=== PATIENT | female | born 1940 | race Caucasian/White ===

== ENCOUNTER 2020-06-13 14:56 | Outpatient (CLI) | payer MEDICARE, OTHER, SELFPAY ==
--- NOTE | 2020-06-13 15:03 | MR_ITS ---
WS: [id number] MRI RIGHT KNEE NONCONTRAST TECHNIQUE: Axial PD, coronal PD fat sat, coronal PD, sagittal PD, and sagittal PD fat-sat images obta ined. CLINICAL INFORMATION: KNEE PAIN COMPARISON: None. FINDINGS: Distal quadriceps and patella tendon are intact. Hypertrophic patella. Prepatella and infrapatella so ft tissue edema. Normal ACL. Normal PCL. Chronic narrowing of the medial and lateral joint compartmen ts. Loss of the medial meniscus presumably due to chronic meniscal tear and degeneration. Subchondral edema involving the medial joint compartment worse in the tibial plateau with hypertrophic changes a long the joint line. [id number] articulation the medial joint compartment. Advanced chondromalacia patella with subchondral edema. Small suprapatellar effusion. Medial and late ral retinacula appear intact. Popliteal cyst measuring 1.8 x 2.1 x 5.7 CM. Medial and lateral collateral ligaments appear intact. Soft tissue edema about the knee. MR/MR knee RT wo con* [id number] IMPRESSION: 1. Anterior and posterior cruciate ligaments are intact. 2. Advanced chronic narrowing of the medial joint compartment [id number] art iculation and edema in the abutting femoral condyle and tibial plateau worse in volving the tibial plateau. 3. Advanced chondromalacia patella with subchondral edema. 4. Diffuse soft tissue edema about the knee with moderate suprapatellar effusi on. 5. Popliteal cyst measuring 1.8 x 2.0 x 5.7 cm
== END 2020-06-13 14:57 | disposition home or self-care (01) ==
LOC: RADWPI 14:57
PROVIDERS: Family Provider Nurse Practitioner; PCP Nurse Practitioner; Visit Provider Nurse Practitioner
DX: M25.561 Pain in right knee (principal); M22.41 Chondromalacia patellae, right knee; M71.21 Synovial cyst of popliteal space [Baker], right knee; R60.0 Localized edema; M25.461 Effusion, right knee
CPT/HCPCS: 73721

== ENCOUNTER → 2023-08-03 09:46 | Outpatient (BNVA) | payer MEDICARE, SELFPAY | PROVIDERS: Family Provider Nurse Practitioner; PCP Nurse Practitioner Family; Referring Provider Nurse Practitioner Family; Visit Provider Psychiatry & Neurology Neurology | DX: G25.0 Essential tremor (principal); R20.2 Paresthesia of skin; M79.601 Pain in right arm; M79.602 Pain in left arm; R29.898 Other symptoms and signs involving the musculoskeletal system; R20.0 Anesthesia of skin; M79.641 Pain in right hand; M79.642 Pain in left hand | CPT/HCPCS: 99203 ==

== ENCOUNTER → 2023-08-26 13:20 | Outpatient (BNVA) | payer MEDICARE, SELFPAY | PROVIDERS: Family Provider Nurse Practitioner; PCP Nurse Practitioner Family; Visit Provider Psychiatry & Neurology Neurology | DX: G56.03 Carpal tunnel syndrome, bilateral upper limbs (principal); G56.20 Lesion of ulnar nerve, unspecified upper limb | CPT/HCPCS: 95911 ==

== ENCOUNTER → 2023-09-21 14:18 | Outpatient (BNVA) | payer MEDICARE, SELFPAY | PROVIDERS: Family Provider Nurse Practitioner; PCP Nurse Practitioner Family; Visit Provider Psychiatry & Neurology Neurology | DX: G25.0 Essential tremor (principal); G56.03 Carpal tunnel syndrome, bilateral upper limbs; R20.2 Paresthesia of skin; R29.898 Other symptoms and signs involving the musculoskeletal system; M79.601 Pain in right arm; M79.602 Pain in left arm; G56.22 Lesion of ulnar nerve, left upper limb | CPT/HCPCS: 99212 ==

== ENCOUNTER → 2024-07-20 10:22 | Outpatient (BNVA) | payer MEDICARE, SELFPAY | PROVIDERS: Family Provider Nurse Practitioner; PCP Nurse Practitioner Family; Visit Provider Psychiatry & Neurology Neurology | DX: G25.0 Essential tremor (principal); M79.641 Pain in right hand; M79.642 Pain in left hand; R20.0 Anesthesia of skin; R20.2 Paresthesia of skin; R29.898 Other symptoms and signs involving the musculoskeletal system; M79.601 Pain in right arm; M79.602 Pain in left arm; G56.03 Carpal tunnel syndrome, bilateral upper limbs; G56.22 Lesion of ulnar nerve, left upper limb | CPT/HCPCS: 99212 ==

== ENCOUNTER → 2025-01-16 14:22 | Outpatient (BNVA) | payer MEDICARE, SELFPAY | PROVIDERS: Family Provider Nurse Practitioner; PCP Nurse Practitioner Family; Visit Provider Psychiatry & Neurology Neurology | DX: R26.89 Other abnormalities of gait and mobility (principal); R20.2 Paresthesia of skin; M79.601 Pain in right arm; M79.602 Pain in left arm; G25.0 Essential tremor; M79.641 Pain in right hand; M79.642 Pain in left hand; R20.0 Anesthesia of skin; R29.898 Other symptoms and signs involving the musculoskeletal system; G56.03 Carpal tunnel syndrome, bilateral upper limbs; G56.22 Lesion of ulnar nerve, left upper limb; R29.818 Other symptoms and signs involving the nervous system; R42 Dizziness and giddiness | CPT/HCPCS: 99212 ==

== ENCOUNTER 2025-01-26 10:51 | Outpatient (CLI) | payer MEDICARE, SELFPAY ==
--- NOTE | 2025-01-26 11:15 | USCV_ITS ---
Carley Corea Age: 84 Gender: F : 1940 Exam Date: 01/26/2025 11:04 Ordering Phys: Maciel Nur MD Technologist: [facility] [place]am Location[place] [facility] [place]: balance disorder Risk Factors: Previous Vascular Surgery: Right Brachial BP: / Left Brachial BP: / Right Left Velocity (cm/s) Spectral Plaque Velocity (cm/s) Spectral Plaque Syst/Diast Broadening Syst/Diast Broadening 73.70/ 18.60 Homo Prox CCA 46.90 / 10.00 88.30/ 24.30 Mid CCA 69.10 / 23.10 60.70/ 17.10 Distal CCA 74.60 / 24.00 60.80/ 16.70 Prox ICA 45.70 / 16.20 53.20/ 17.70 Mid ICA 28.30 / 9.90 48.60/ 16.40 Distal ICA 78.20 / 25.50 62.80 ECA 78.10 1.00 ICA/CCA 0.60 Antegrade Vertebral Antegrade 41.70/ 10.80 cm/s 18.70/ 6.30 cm/s Tri Subclavian Tri 62.70 111.8 0 CONCLUSIONS Right ICA stenosis <50%. Mild atheromatous plaque right carotid bulb/ICA. Left ICA stenosis <50%. Mild atheromatous plaque left carotid bulb/ICA. Intimal thickening in the common carotid arteries and internal carotid arteries bilaterally. Normal antegrade Doppler flow noted in the right vertebral artery. Normal antegrade Doppler flow noted in the left vertebral artery. Artis Caruso MD (Electronically Signed) Final Date: 26 January 2025 11:37 S
== END 2025-01-26 10:52 | disposition home or self-care (01) ==
PROVIDERS: Family Provider Nurse Practitioner; PCP Nurse Practitioner Family; Visit Provider Psychiatry & Neurology Neurology
DX: R20.2 Paresthesia of skin (principal); M79.601 Pain in right arm; M79.602 Pain in left arm; R26.89 Other abnormalities of gait and mobility; I65.23 Occlusion and stenosis of bilateral carotid arteries
CPT/HCPCS: 93880

== ENCOUNTER 2025-01-30 14:44 | Outpatient (CLI) | payer MEDICARE, SELFPAY ==
--- NOTE | 2025-01-30 15:15 | MR_ITS ---
WS: [id number] MRI BRAIN WITH AND WITHOUT CONTRAST HISTORY: G25.0 - Essential tremor COMPARISON: None available. TECHNIQUE: Multiplanar imaging performed through the brain with MultiHance 17 ml's IV. No acute infarct. Diffusion imaging is normal. Moderate small vessel ischemic type changes surrounding the ventricles and in the subcortical white matter. Additional bilateral ischemic changes in the xochilt. No large territory infarct. Moderate bilateral cerebral and cerebellar atrophy. Moderate hippocampal atrophy. No susceptibility artifacts or prior lacunar infarcts. Ventricles are mildly dilated on the basis of atrophy. Clivus and pituitary gland are normal. Visualized posterior fossa and brainstem are also normal. Postcontrast images are negative for masses or vascular malformations. Dural venous sinuses are normal. Paranasal sinuses: Well aerated with no significant disease. Mastoid air cells: Normal. Calvarium and scalp: Normal. MR/MR head wo/w con [id number] IMPRESSION: 1. No acute infarct. 2. Moderate small vessel ischemic type changes throughout the supratentorial w tanja matter. 3. Additional small vessel ischemic disease in the xochilt, bilateral. 4. No prior infarct. 5. Moderate hippocampal atrophy. 6. No enhancing masses. 7. Moderate cerebral and cerebellar atrophy.
[2025-01-30] MEDS: gadobenate dimeglumine 20 mL vial 17 ML IV (16:22)
== END 2025-01-30 14:45 | disposition home or self-care (01) ==
PROVIDERS: Family Provider Nurse Practitioner; PCP Nurse Practitioner Family; Visit Provider Psychiatry & Neurology Neurology
DX: G25.0 Essential tremor (principal); R26.89 Other abnormalities of gait and mobility; R93.0 Abnormal findings on diagnostic imaging of skull and head, not elsewhere classified; G31.89 Other specified degenerative diseases of nervous system
CPT/HCPCS: 70553

== ENCOUNTER → 2025-04-19 09:20 | Outpatient (BNVA) | payer MEDICARE, SELFPAY | PROVIDERS: Family Provider Nurse Practitioner; PCP Nurse Practitioner Family; Referring Provider Orthopaedic Surgery Hand Surgery; Visit Provider Psychiatry & Neurology Neurology | DX: R29.898 Other symptoms and signs involving the musculoskeletal system (principal); R20.2 Paresthesia of skin; M79.601 Pain in right arm; M79.602 Pain in left arm; R20.0 Anesthesia of skin; M79.641 Pain in right hand; M79.642 Pain in left hand; G56.03 Carpal tunnel syndrome, bilateral upper limbs; G56.22 Lesion of ulnar nerve, left upper limb | CPT/HCPCS: 95885; 95910 ==

== ENCOUNTER 2025-05-15 11:00 | Outpatient (CLI) | payer MEDICARE, SELFPAY ==
--- NOTE | 2025-05-15 11:08 | US_ITS ---
WS: [id number] Exam: US soft tissue head neck [id number] Date/Time of Exam: 05/15/2025 11:31 AM Reason For Exam: LOCALIZED SWELLING, MASS, LUMP,NECK The RIGHT neck is targeted for ultrasound evaluation. There was no sign of solid mass or abnormal soft tissue fluid collection in the RIGHT neck. No abnormal lymphadenopathy was identified. There were no soft tissue abnormalities identified behind the region of the right ear. US/US soft tissue head neck [id number] IMPRESSION: 1. No suspicious solid soft tissue mass or abnormal soft tissue fluid collectio n involving the region of the RIGHT neck and posterior to the right ear at the patient directed areas.
== END 2025-05-15 11:01 | disposition home or self-care (01) ==
LOC: RAD 11:03
PROVIDERS: PCP Nurse Practitioner Family; Visit Provider Nurse Practitioner Family
DX: R22.1 Localized swelling, mass and lump, neck (principal)
CPT/HCPCS: 76536